=== PATIENT | female | born 1995 | race Caucasian/White ===

== ENCOUNTER 2018-01-01 16:35 | Emergency (ER) | payer BC, OTHER ==
[~2018-01-01] VITALS: Ht 165.1 cm; Wt 76.2 kg
[2018-01-01] MEDS ORDERED: HYDROCODONE/APAP 10MG-325MG TAB PO ONE (17:00)
--- NOTE | 2018-01-01 17:40 | Diagnostic Imaging Report ---
Left Ankle - 3 views HISTORY: Pain. COMPARISON: None available. FINDINGS: Bones: No acute displaced fracture. No expansile lytic or sclerotic lesion. Joints: The joint spaces are well-maintained. No dislocation. Soft tissues: The soft tissues appear unremarkable. IMPRESSION: No acute radiographic abnormality. Signed by: Dr. Celso Robison M.D. on 01/01/2018 5:36 PM
--- NOTE | 2018-01-01 17:41 | Diagnostic Imaging Report ---
Left foot - 3 views HISTORY: Pain. COMPARISON: None available. FINDINGS: Bones: No acute displaced fracture. No expansile lytic or sclerotic lesion. Joints: The joint spaces are well-maintained. No dislocation. Soft tissues: The soft tissues appear unremarkable. IMPRESSION: No acute radiographic abnormality. Signed by: Dr. Celso Robison M.D. on 01/01/2018 5:37 PM
--- NOTE | 2018-01-01 17:45 | Diagnostic Imaging Report ---
Left tibia and fibula - 2 views HISTORY: Pain. COMPARISON: None available. FINDINGS: Bones: No acute displaced fracture. No expansile lytic or sclerotic lesion. Joints: The joint spaces are well-maintained. No dislocation. Soft tissues: The soft tissues appear unremarkable. IMPRESSION: No acute radiographic abnormality. Signed by: Dr. Celso Robison M.D. on 01/01/2018 5:41 PM
[2018-01-01 21:54] VITALS: BP 132/84
== END 2018-01-01 19:06 | disposition home or self-care (01) ==
LOC: ER 16:35
DX: S93.402A Sprain of unspecified ligament of left ankle, initial encounter (principal); Y93.89 Activity, other specified; Y92.22 Religious institution as the place of occurrence of the external cause
CPT/HCPCS: 99283